=== PATIENT | female | born 1955 | race Caucasian/White ===

== ENCOUNTER → 2018-10-19 | Outpatient (CLI) | payer OTHER ==
--- NOTE | 2018-10-19 11:30 | RAD ---
EXAM: Lumbar spine, 2 views. HISTORY: Disability determination. Pain. COMPARISON: None. FINDINGS: 2 views of the lumbar spine are obtained. There is minimal lumbar dextroscoliosis centered at L3. There is minimal grade 1 anterolisthesis of L3 on L4 and mild grade 1 anterolisthesis of L4 and L5. There is mild endplate remodeling at multiple levels. There is facet arthropathy predominantly at L4-L5 and L5-S1. IMPRESSION: 1. Degenerative change predominantly at the lower lumbar levels. 2. Minimal lumbar dextroscoliosis and slight anterolisthesis of L4 on L5 and L5 on S1. Electronically signed by: Maribeth Badillo MD (10/19/2018 11:25 AM) [id number]
== END | disposition home or self-care (01) ==
LOC: LAB 10:26
DX: M47.816 Spondylosis without myelopathy or radiculopathy, lumbar region (principal)
CPT/HCPCS: 72100